=== PATIENT | female | born 1940 | race African-American/Black ===

== ENCOUNTER 2022-05-18 13:40 | Outpatient (CLI) | payer OTHER | END 2022-05-18 13:41 | disposition home or self-care (01) | LOC: BICRAD 13:40 | PROVIDERS: ATTEND Family Medicine | DX: M25.561 Pain in right knee (principal); M25.562 Pain in left knee; M25.511 Pain in right shoulder; M25.512 Pain in left shoulder; M17.0 Bilateral primary osteoarthritis of knee; M19.012 Primary osteoarthritis, left shoulder ==